=== PATIENT | female | born 1950 | race Caucasian/White ===

== ENCOUNTER → 2018-04-06 08:19 | Outpatient (CLI) | payer MEDICARE, MEDICAID, SELFPAY ==
[2018-04-06 08:42] LABS: Basophils # 0.1 K/mm3 (0-0.2); Basophils % 1.2 % (0.1-2.0); Eosinophils # 0.4 K/mm3 (0.0-0.4); Eosinophils % 7.5 % (0.1-12.0); Hematocrit 46.8 % (37.0-47.0); Hemoglobin 14.3 g/dL (12.2-16.2); Lymphocytes # 0.7 K/mm3 (0.7-4.5); Lymphocytes % 14.9 K/mm3 (10-50); Mean Corpuscular HGB Conc 30.6 g/dL (31.8-35.4); Mean Corpuscular Volume 98.2 fl (81-99); Mean Platelet Volume 7.3 fl (7.4-10.4); Monocytes # 0.5 K/mm3 (0.1-1.0); Monocytes % 9.6 % (1.7-9.3); Neutrophils # 3.3 K/mm3 (1.8-7.8); Neutrophils % 66.8 % (37.0-80.0); Platelet Count 292 K/mm3 (142-424); Red Blood Count 4.77 M/mm3 (4.20-5.40); Red Cell Distribution Width 12.5 % (11.5-17.5)
[2018-04-06 10:21] LABS: Alanine Aminotransferase 22 U/L (12-78); Albumin Level 3.6 gm/dL (3.4-5.0); Albumin/Globulin Ratio 1.2 (1.1-1.8); Alkaline Phosphatase 77 U/L (46-116); Anion Gap 7.1 mEq/L (5-15); Aspartate Amino Transferase 16 U/L (15-37); Bilirubin,Total 0.6 mg/dL (0.2-1.0); Blood Urea Nitrogen 14 mg/dL (7-18); Calcium 8.8 mg/dL (8.5-10.1); Carbon Dioxide 31 mmol/L (21.0-32.0); Chloride 109 mmol/L (98-107); Chol/HDL Ratio 2.3 (1-3.5); Cholesterol 153 mg/dL (140-200); Creatinine,Serum 0.44 mg/dL (0.55-1.02); Estimated Glomerular Filt Rate 142 ml/min (>60); GFR (African American) 172 ML/MIN (>60); Globulin 3.1 gm/dl (1.3-3.2); Glucose 106 mg/dL (74-106); HDL Cholesterol 67 mg/dL (29-89); LDL Cholesterol 76 mg/dL (0-130); Potassium 4.1 mmoL/L (3.5-5.1); Sodium 143 mmol/L (136-145); Thyroid Stimulating Hormone 0.33 uIU/ml (0.358-3.740); Total Protein,Serum 6.7 gm/dL (6.4-8.2); Triglycerides 51 mg/dL (30-200); VLDL Cholesterol 10 mg/dL (0-40)
== END ==
PROVIDERS: Visit Provider Internal Medicine
DX: I10 Essential (primary) hypertension (principal); E03.9 Hypothyroidism, unspecified; E78.5 Hyperlipidemia, unspecified; M15.0 Primary generalized (osteo)arthritis
CPT/HCPCS: 36415; 80053; 80061; 84443; 85025

== ENCOUNTER → 2019-01-06 11:31 | Outpatient (CLI) | payer MEDICARE, MEDICAID, SELFPAY ==
[2019-01-06 12:51] LABS: Basophils # 0.1 K/mm3 (0-0.2); Basophils % 0.9 % (0.1-2.0); Eosinophils # 0.2 K/mm3 (0.0-0.4); Eosinophils % 4.4 % (0.1-12.0); Hematocrit 43.5 % (37.0-47.0); Lymphocytes # 0.5 K/mm3 (0.7-4.5); Lymphocytes % 9.4 % (10-50); Mean Corpuscular HGB Conc 32.3 g/dL (31.8-35.4); Mean Corpuscular Hemoglobin 31.5 pg (27.0-31.2); Mean Corpuscular Volume 97.7 fl (81-99); Mean Platelet Volume 7.5 fl (7.4-10.4); Monocytes # 0.5 K/mm3 (0.1-1.0); Monocytes % 8.1 % (1.7-9.3); Neutrophils # 4.3 K/mm3 (1.8-7.8); Neutrophils % 77.2 % (37.0-80.0); Platelet Count 287 K/mm3 (142-424); Red Blood Count 4.45 M/mm3 (4.20-5.40); Red Cell Distribution Width 12.8 % (11.5-17.5); White Blood Count 5.6 K/mm3 (4.8-10.8)
[2019-01-06 14:29] LABS: Alanine Aminotransferase 25 U/L (12-78); Albumin Level 3.8 gm/dL (3.4-5.0); Albumin/Globulin Ratio 1.2 (1.1-1.8); Alkaline Phosphatase 85 U/L (46-116); Anion Gap 12.3 mEq/L (5-15); Aspartate Amino Transferase 14 U/L (15-37); Bilirubin,Total 0.4 mg/dL (0.2-1.0); Blood Urea Nitrogen 19 mg/dL (7-18); Calcium 9.1 mg/dL (8.5-10.1); Carbon Dioxide 29 mmol/L (21.0-32.0); Chloride 105 mmol/L (98-107); Chol/HDL Ratio 2.7 (1-3.5); Cholesterol 163 mg/dL (140-200); Creatinine,Serum 0.74 mg/dL (0.55-1.02); Estimated Glomerular Filt Rate 78 ml/min (>60); GFR (African American) 94 ML/MIN (>60); Globulin 3.3 gm/dl (1.3-3.2); Glucose 101 mg/dL (74-106); HDL Cholesterol 60 mg/dL (29-89); LDL Cholesterol 76 mg/dL (0-130); Potassium 4.3 mmoL/L (3.5-5.1); Sodium 142 mmol/L (136-145); Total Protein,Serum 7.1 gm/dL (6.4-8.2); Triglycerides 136 mg/dL (30-200); VLDL Cholesterol 27 mg/dL (0-40)
[2019-01-08 06:56] LABS: Vitamin B12 448 pg/mL (232-1245)
== END ==
PROVIDERS: Visit Provider Internal Medicine
DX: I10 Essential (primary) hypertension (principal); R63.4 Abnormal weight loss; E03.9 Hypothyroidism, unspecified; E78.5 Hyperlipidemia, unspecified
CPT/HCPCS: 36415; 80053; 80061; 82607; 84443; 85025

== ENCOUNTER → 2021-12-12 13:30 | Outpatient (CLI) | payer MEDICARE, MEDICAID, SELFPAY ==
[2021-12-12 15:18] LABS: Basophils # 0.1 K/mm3 (0-0.2); Eosinophils # 0.3 K/mm3 (0.0-0.4); Eosinophils % 5.1 % (0.1-12.0); Hematocrit 44.2 % (37.0-47.0); Hemoglobin 13.7 g/dL (12.2-16.2); Lymphocytes # 0.6 K/mm3 (0.7-4.5); Lymphocytes % 11.6 % (10-50); Mean Corpuscular Hemoglobin 31.4 pg (27.0-31.2); Mean Corpuscular Volume 101.4 fl (81-99); Mean Platelet Volume 9.3 fl (7.4-10.4); Monocytes # 0.4 K/mm3 (0.1-1.0); Monocytes % 7.5 % (1.7-9.3); Neutrophils % 74.8 % (37.0-80.0); Platelet Count 316 K/mm3 (142-424); Red Blood Count 4.36 M/mm3 (4.20-5.40); Red Cell Distribution Width 13.3 % (11.5-17.5); White Blood Count 5.4 K/mm3 (4.8-10.8)
[2021-12-12 16:28] LABS: Chloride 102 mmol/L (98-107)
[2021-12-12 16:29] LABS: Potassium 4.3 mmoL/L (3.5-5.1); Sodium 137 mmol/L (136-145)
[2021-12-12 16:31] LABS: Alanine Aminotransferase 21 U/L (12-78); Alkaline Phosphatase 68 U/L (38-126); Aspartate Amino Transferase 29 U/L (14-36); Bilirubin,Total 0.5 mg/dl (0.2-1.3); Blood Urea Nitrogen 11 mg/dl (7-17); Estimated Glomerular Filt Rate 157 ml/min (>60); GFR (African American) 190 ML/MIN (>60)
[2021-12-12 16:32] LABS: Albumin Level 3.6 g/dl (3.5-5.0); Albumin/Globulin Ratio 1.5 (1.1-1.8); Anion Gap 8.3 mEq/L (5-15); Calcium 8.3 mg/dl (8.4-10.2); Carbon Dioxide 31 mmol/L (22.0-30.0); Globulin 2.4 g/dL (1.3-3.2); Glucose 92 mg/dl (74-100)
[2021-12-12 16:58] LABS: Thyroid Stimulating Hormone 2.71 uIU/mL (0.465-4.68)
[2021-12-12 20:59] LABS: Vitamin B12 501 pg/mL (239-931)
[2021-12-12 21:11] LABS: Folate 6.86 ng/mL
== END ==
PROVIDERS: Visit Provider Internal Medicine
DX: M06.00 Rheumatoid arthritis without rheumatoid factor, unspecified site (principal); E03.9 Hypothyroidism, unspecified; M15.0 Primary generalized (osteo)arthritis; F79 Unspecified intellectual disabilities
CPT/HCPCS: 80053; 82607; 82746; 84443; 85025; 85044

== ENCOUNTER 2022-01-13 14:50 | Emergency (ER) | payer MEDICARE, MEDICAID, SELFPAY ==
[2022-01-13 14:50] VITALS: BP 173/88; PULSE 73; RESP 18; TEMP 36.7; O2SAT 98; BMI 15.9
--- NOTE | 2022-01-13 15:05 | XR_ITS ---
FINAL REPORT CLINICAL HISTORY: smashed fingers, pt unable to remove ring FINDINGS: LEFT HAND 3 views of the left hand were obtained. There is a nondisplaced fracture of the tuft of the distal 4th phalanx. The bones are osteopenic. There are mild degenerative changes.. Visualized joint spaces are normally aligned. Soft tissues are unremarkable. IMPRESSION: Nondisplaced fracture of the distal 4th phalanx. Reviewed, Interpreted and Dictated by Cirilo Bo III, MD Transcribed by Jessica Lubin Authenticated by Cirilo Bo III, MD on 01/13/2022 04:05:[address] [facility]
--- NOTE | 2022-01-13 16:18 | HMH.EDUTC ---
[facility] Disposition Clinical Impression: Finger fracture, left Qualifiers: Encounter type: initial encounter Finger: ring finger Fracture type: closed Phalanx: distal Fracture alignment: nondisplaced Qualified Code(s): S62.665A - Nondisplaced fracture of distal phalanx of left ring finger, initial encounter for closed fracture Disposition: Home, Self-Care Condition on Discharge: Good Instructions: Finger Fracture, DI for Finger Fracture, How To Perform RICE (Rest, Ice, Compress, Elevate) Additional Instructions: *RICE, Rest the extremity, Ice 15-20 minutes 3-4 times daily, Compress- wear the flora wrap as discussed as much as possible to help reduce swelling and pain, Elevate the extremity when at rest *finger splint and uymiko is for support and help control swelling, use it except in the shower. Be sure that is not to tight but not to loose either *Elevate when resting *Ibuprofen every 6-8 hours as needed for pain an inflammation. If need something more can take Tylenol in between doses of Ibuprofen to help Immediately follow up with your family doctor for new or worsening of symptoms, or no noticeable improvement over the next 3-5 days Follow up with family Doctor Return if needed Straight to ER if any life threatening symptoms Referrals: Vishal Valdes [Primary Care Provider] - As needed Time of Disposition: 16:34 Medical Decision Making - David Inquiry Pt receiving controlled substance: No David was queried for this patient: No Vital Signs: 01/13/22 14:50 Temperature 98.1 F Temperature Source Oral Pulse Rate [Left Radial] 73 Respiratory Rate 18 Blood Pressure [Right Arm] 173/88 H Blood Pressure Mean [Right Arm] 116 Blood Pressure Source [Right Arm] Automatic Cuff Blood Pressure Position [Right Arm] Sitting 02 Sat by Pulse Oximetry 98 Oxygen Delivery Method Room Air - Radiology Data #1 Image(s): Hand Image Reviewed: Yes I have reviewed radiologist's interpretation IMPRESSION: Nondisplaced fracture of the distal 4th phalanx. [facility] HPI - General Stated complaint: ao 01/13, left hand pain Time Seen by Provider: 01/13/22 16:18 Mode of Arrival: Ambulatory Source of Information: Patient Limitations: No Limitations Description of Symptoms (Recalled from Triage Doc. by RN): C/O MASHED 2 FINGERS AND LEFT HAND THIS AFTERNOON ON A TRUNK OF CAR HEENT Symptoms (Recalled from RN notes): No Resp Symptoms (Recalled from RN notes): No Skin Symptoms (Recalled from RN notes): No MS Symptoms (Recalled from RN notes): Yes Functional Status (Recalled from RN notes): NA - History of Present Illness Provider Complaint: Guardian said that patient was standing at the back of the car and as he was shutting the trunk she stuck her hand out the the trunk shut on the tip of her middle and ring finger on her left hand State that the tips of her fingers immediatly bruised and was swelling so they brought her in to get it checked - Related Data Allergies Allergy/AdvReac Type Severity Reaction Status Date / Time No Known Allergies Allergy Unverified 09/11/17 15:06 - Worker's Comp Is this a Worker's Comp case?: No [facility] History - Hepatitis A Screen Drug use history?: No High risk sexual behaviors?: No History of sexually transmitted infection?: No Currently employed?: No Childcare worker?: No Do you have indoor plumbing?: Yes Do you have electricity?: Yes Attestation statement:: This patient has been screened for Hepatitis A risk factors. I have reviewed the patient's past medical history: Yes ROS Obtained: Yes All systems reviewed & no additional complaints, Yes Systems reviewed as appropriate & no additional complaints - Constitutional Constitutional: Reports system reviewed and no additional complaints, except as docu - ENT Ears, Nose, Mouth, and Throat: Reports system reviewed and no additional complaints, except as docu - Cardiovascular Cardiovascular: Reports system reviewed and no additional complai
[2022-01-13 16:59] VITALS: BP 173/88; PULSE 73; RESP 18; TEMP 36.7; O2SAT 98
== END 2022-01-13 17:00 | disposition home or self-care (01) ==
PROVIDERS: Emergency Provider Nurse Practitioner; PCP Internal Medicine
DX: S62.665A Nondisplaced fracture of distal phalanx of left ring finger, initial encounter for closed fracture (principal); W23.1XXA Caught, crushed, jammed, or pinched between stationary objects, initial encounter; Y92.89 Other specified places as the place of occurrence of the external cause
CPT/HCPCS: 73130; 99213; G0463

== ENCOUNTER → 2022-04-12 10:54 | Outpatient (CLI) | payer MEDICARE, MEDICAID, SELFPAY ==
--- NOTE | 2022-04-12 | ECG_ITS ---
APPROVED REPORT Exam: Resting ECG HR:77 bpm ECG Measurements Heart Rate 77 AXES DC 197 P 67 QRSd 85 QRS 55 QT 387 T 73 QTc 419 Conclusion SINUS RHYTHM LEFT VENTRICULAR HYPERTROPHY AND ST-T CHANGE [VOLTAGE CRITERIA PLUS ST/T ABNORMALITY] ABNORMAL ECG Electronically signed by : Vishal Valdes MD 04/12/2022 15:15:34
[2022-04-12 12:08] LABS: Chloride 102 mmol/L (98-107); Sodium 135 mmol/L (136-145)
[2022-04-12 12:09] LABS: Basophils % 0.9 % (0.1-2.0); Eosinophils # 0.3 K/mm3 (0.0-0.4); Hematocrit 37.6 % (37.0-47.0); Hemoglobin 12.6 g/dL (12.2-16.2); Lymphocytes # 0.5 K/mm3 (0.7-4.5); Lymphocytes % 10.2 % (10-50); Mean Corpuscular HGB Conc 33.4 g/dL (31.8-35.4); Mean Corpuscular Hemoglobin 32.5 pg (27.0-31.2); Mean Corpuscular Volume 97.1 fl (81-99); Mean Platelet Volume 7.6 fl (7.4-10.4); Monocytes # 0.4 K/mm3 (0.1-1.0); Neutrophils # 3.9 K/mm3 (1.8-7.8); Neutrophils % 76.9 % (37.0-80.0); Platelet Count 280 K/mm3 (142-424); Potassium 3.8 mmoL/L (3.5-5.1); Red Blood Count 3.87 M/mm3 (4.20-5.40); Red Cell Distribution Width 13.1 % (11.5-17.5)
[2022-04-12 12:11] LABS: Alanine Aminotransferase 29 U/L (12-78); Albumin Level 3.5 g/dl (3.5-5.0); Albumin/Globulin Ratio 1.3 (1.1-1.8); Alkaline Phosphatase 71 U/L (38-126); Anion Gap 7.8 mEq/L (5-15); Aspartate Amino Transferase 32 U/L (14-36); Bilirubin,Total 0.5 mg/dl (0.2-1.3); Blood Urea Nitrogen 14 mg/dl (7-17); Calcium 8.9 mg/dl (8.4-10.2); Carbon Dioxide 29 mmol/L (22.0-30.0); Estimated Glomerular Filt Rate 157 ml/min (>60); GFR (African American) 190 ML/MIN (>60); Globulin 2.6 g/dL (1.3-3.2); Glucose 225 mg/dl (74-100); Total Protein,Serum 6.1 g/dl (6.3-8.2)
[2022-04-12 12:12] LABS: Magnesium 1.7 mg/dl (1.6-2.3)
[2022-04-12 12:41] LABS: Thyroid Stimulating Hormone 0.15 uIU/mL (0.465-4.68)
[2022-04-12 12:49] LABS: Erythrocyte Sedimentation Rate 7 mm/hr (0-30)
[2022-04-12 14:06] LABS: Vitamin B12 531 pg/mL (239-931)
[2022-04-12 18:57] LABS: Hemoglobin A1C 6.1 % (4.0-6.0)
[2022-04-14 08:15] LABS: Triiodothyronine (T3) Total 98 ng/dL (71-180)
== END ==
PROVIDERS: PCP Internal Medicine; Visit Provider Internal Medicine
DX: E03.9 Hypothyroidism, unspecified (principal); R73.9 Hyperglycemia, unspecified; I10 Essential (primary) hypertension; I49.9 Cardiac arrhythmia, unspecified; R63.4 Abnormal weight loss; F79 Unspecified intellectual disabilities
CPT/HCPCS: 80053; 82607; 83036; 83735; 84443; 84480; 85025; 85651; 93005

== ENCOUNTER → 2022-08-14 13:14 | Outpatient (CLI) | payer MEDICARE, MEDICAID, SELFPAY ==
[2022-08-14 14:35] LABS: Anion Gap 14.4 mEq/L (5-15); Blood Urea Nitrogen 15 mg/dl (7-17); Calcium 9.3 mg/dl (8.4-10.2); Carbon Dioxide 32 mmol/L (22.0-30.0); Chloride 96 mmol/L (98-107); Estimated Glomerular Filt Rate 121 ml/min (>60); GFR (African American) 147 ML/MIN (>60); Glucose 127 mg/dl (74-100); Sodium 138 mmol/L (136-145)
[2022-08-14 14:53] LABS: Potassium 4.4 mmoL/L (3.5-5.1)
== END ==
PROVIDERS: PCP Internal Medicine; Visit Provider Internal Medicine
DX: E03.9 Hypothyroidism, unspecified (principal)
CPT/HCPCS: 80048; 84443

== ENCOUNTER 2022-09-05 14:50 | Emergency (ER) | payer MEDICARE, MEDICAID, SELFPAY ==
[2022-09-05 15:10] VITALS: BP 147/69; PULSE 78; RESP 16; TEMP 36.7; O2SAT 97; BMI 13.4
--- NOTE | 2022-09-05 15:20 | PC.NURSE ---
Pt laceration cleaned with saline and sterile 4x4s gauze dressing taped over top of laceration. pt tolerated cleaning well.
--- NOTE | 2022-09-05 15:44 | PC.NURSE ---
pt waiting in triage room on bed availability in ER.
--- NOTE | 2022-09-05 16:54 | PC.NURSE ---
pt POA states he is going to take pt home r/t length of wait, states he is not well himself and can not sit for long periods of time. States he will bandage wound at home as needed. Apologized to him about length of wait time, pt verbalized understanding about no beds available in ER at this time. Explained to POA to bring pt back at any time should he feel pt needs or wants to have pt seen. pt lwbs at this time with her POA notified ER
[2022-09-05 17:00] VITALS: BP 147/69; PULSE 78; RESP 18; TEMP 36.7; O2SAT 97
== END 2022-09-05 17:00 | disposition left against medical advice (07) ==
PROVIDERS: Emergency Provider Emergency Medicine; PCP Internal Medicine
DX: Z53.21 Procedure and treatment not carried out due to patient leaving prior to being seen by health care provider (principal)

== ENCOUNTER → 2022-11-03 12:14 | Outpatient (CLI) | payer MEDICARE, MEDICAID, SELFPAY ==
[2022-11-03 12:31] LABS: Basophils # 0.1 K/mm3 (0-0.2); Eosinophils # 0.2 K/mm3 (0.0-0.4); Eosinophils % 3.5 % (0.1-12.0); Hematocrit 42.3 % (37.0-47.0); Hemoglobin 13.5 g/dL (12.2-16.2); Lymphocytes # 0.5 K/mm3 (0.7-4.5); Mean Corpuscular Volume 96.8 fl (81-99); Mean Platelet Volume 9.6 fl (7.4-10.4); Monocytes # 0.4 K/mm3 (0.1-1.0); Monocytes % 6.3 % (1.7-9.3); Neutrophils # 5.2 K/mm3 (1.8-7.8); Neutrophils % 82.1 % (37.0-80.0); Platelet Count 376 K/mm3 (142-424); Red Blood Count 4.37 M/mm3 (4.20-5.40); Red Cell Distribution Width 13.1 % (11.5-17.5); White Blood Count 6.3 K/mm3 (4.8-10.8)
[2022-11-03 13:35] LABS: Alanine Aminotransferase 15 U/L (12-78); Albumin Level 3.8 g/dl (3.5-5.0); Albumin/Globulin Ratio 1.3 (1.1-1.8); Alkaline Phosphatase 80 U/L (38-126); Aspartate Amino Transferase 24 U/L (14-36); Bilirubin,Total 0.3 mg/dl (0.2-1.3); Blood Urea Nitrogen 16 mg/dl (7-17); Calcium 8.7 mg/dl (8.4-10.2); Carbon Dioxide 32 mmol/L (22.0-30.0); Chloride 105 mmol/L (98-107); Estimated Glomerular Filt Rate 98 ml/min (>60); GFR (African American) 119 ML/MIN (>60); Globulin 2.9 g/dL (1.3-3.2); Glucose 121 mg/dl (74-100); Sodium 141 mmol/L (136-145); Total Protein,Serum 6.7 g/dl (6.3-8.2)
[2022-11-03 14:05] LABS: Thyroid Stimulating Hormone 3.69 uIU/mL (0.465-4.68)
== END ==
PROVIDERS: PCP Internal Medicine; Visit Provider Internal Medicine
DX: I10 Essential (primary) hypertension (principal); E03.9 Hypothyroidism, unspecified; R63.4 Abnormal weight loss; D64.9 Anemia, unspecified; J45.901 Unspecified asthma with (acute) exacerbation; M15.0 Primary generalized (osteo)arthritis
CPT/HCPCS: 80053; 84443; 85025

== ENCOUNTER 2022-11-23 10:52 | Emergency (ER) | payer MEDICARE, MEDICAID, SELFPAY ==
--- NOTE | 2022-11-23 11:03 | XR_ITS ---
FINAL REPORT CLINICAL HISTORY: fall FINDINGS: Pelvis A single view was obtained. There is no acute fracture or dislocation. There is degenerative disease. No soft tissue abnormality is identified. IMPRESSION: Degenerative disease. If clinical concern persists, CT is recommended. Reviewed, Interpreted and Dictated by Nevaeh Patricia MD Transcribed by Ila Colin Authenticated and . [facility]
--- NOTE | 2022-11-23 11:03 | CT_ITS ---
FINAL REPORT TECHNIQUE: Thin section axial images were obtained from skull base to vertex without contrast. Coronal reconstruction images were obtained from the axial data. Exam was performed using dose reduction technique. CLINICAL HISTORY: trauma FINDINGS: There is age-appropriate atrophy. There is no mass effect or midline shift. There is no intracranial hemorrhage. There is no hydrocephalus. Periventricular low density is likely related to changes of chronic small vessel ischemia. The basilar cisterns are preserved. The posterior fossa is without acute abnormality. There is partial opacification of the right maxillary sinus. The soft tissues are otherwise without acute abnormality. No acute osseous abnormality is identified. IMPRESSION: Atrophy and chronic small vessel ischemic change. Right maxillary sinusitis. Reviewed, Interpreted and Dictated by Nevaeh Patricia MD Transcribed by Ila Colin Authenticated and [facility]
[2022-11-23 11:04] VITALS: BP 124/101; PULSE 109; RESP 16; TEMP 36.4; O2SAT 97; BMI 14.1
--- NOTE | 2022-11-23 11:04 | HMH.EDGENADL ---
Discharge Plan Disposition Patient Disposition: Home, Self-Care Condition: Good Prescriptions Prescriptions: New cephalexin 500 mg capsule 500 mg PO BID 10 Days Qty: 20 0RF Referrals Follow up/Referrals: Vishal Valdes MD [Primary Care Provider] - See instructions Activity Restrictions/Add. Instructions Additional Instructions/Restrictions: You have been evaluated for head injury after a fall. CT scan today shows no skull fracture or bleed. You have been diagnosed with a concussion, closed head injury. Your urine today shows signs of infection. It is important that you take antibiotics twice daily as prescribed. Follow-up with your primary care doctor. Return to the emergency department at once for any new or worsening symptoms Clinical Impressions Clinical Impression: Closed head injury, Cystitis Instructions Patient Instructions: DI for Acute Cystitis, DI for Concussion Discharge ED Provider: Roxann Meyers Adult HPI General Chief complaint: Fall Stated complaint: Fall@home 11/20 Loss of appetite RT foot pain/weak Time Seen by Provider: 11/23/22 10:59 Mode of Arrival: Ambulatory Source of Information: Relative Limitations: No Limitations History of Present Illness HPI narrative: 72-year-old female presenting to the emergency department with head injury, fall. Fall happened on Sunday, 5 days ago. It was heard by her brother in law, her caregiver. Since then she has been somewhat more tired than normal. She usually plays with toys and watches TV during the day. She seems to be sleeping more often. Eating very little. She is very thin at baseline. Nonverbal. Developmental delay. Brother has not noticed fevers, vomiting. No other apparent injuries in the fall. She is able to stand and walk with assistance. Usually does not use a wheelchair, walker, other assistive device. Related Data Previous Rx's Medication Instructions Recorded cephalexin 500 mg capsule 500 mg PO BID 10 days #20 caps 11/23/22 Allergies Allergy/AdvReac Type Severity Reaction Status Date / Time No Known Allergies Allergy Unverified 09/11/17 15:06 [facility] Disclaimer: The information contained in this section may have been updated after the patient was seen, as this information can be updated by other users. Social History Smoking Status: Never smoker alcohol intake: never current occupational status: disabled Travel in the last 8 weeks: None ROS Obtained: Yes All systems reviewed & no additional complaints except as documented Constitutional Constitutional: Reports anorexia, Reports daytime sleepiness, Denies fever(s) and Denies headache(s) Eyes Eyes: Denies irritation ENT Ears, Nose, Mouth, and Throat: Reports disequilibrium and Denies headache(s) Cardiovascular Cardiovascular: Denies leg edema Respiratory Respiratory: Denies cough and Denies wheezing Gastrointestinal Gastrointestingal: Denies diarrhea or vomiting Musculoskeletal Musculoskeletal: Denies limited range of motion Neurologic Neurologic: Reports disequilibrium and Denies headache(s) Allergic/Immunologic Allergic/Immunologic: Denies wheezing Physical Exam General General appearance: alert and in no apparent distress Head Head exam: atraumatic and normocephalic Eye Eye exam: Present normal appearance; Absent scleral icterus or conjunctival redness ENT ENT exam: Present normal exam, mucous membranes moist and other (Poor dentition.) Neck Neck exam: Present normal inspection and other (No palpable step-off or deformity.); Absent tenderness Respiratory Respiratory exam: Present normal lung sounds bilaterally; Absent respiratory distress or wheezes Cardiovascular Cardiovascular exam: Present regular rate and normal rhythm Abdominal Exam Abdominal exam: Present soft; Absent distention or tenderness Extremities Exam Extremities exam: Present normal inspection and other (No apparent tenderness palpation on hip flexion, knee fle
--- NOTE | 2022-11-23 11:29 | PC.NURSE ---
From imaging. Labs collected.
[2022-11-23 11:30] VITALS: BP 119/87; PULSE 105; O2SAT 95
[2022-11-23 11:48] LABS: Basophils # 0.1 K/mm3 (0-0.2); Basophils % 0.3 % (0.1-2.0); Eosinophils # 0.2 K/mm3 (0.0-0.4); Eosinophils % 1.3 % (0.1-12.0); Hematocrit 40.1 % (37.0-47.0); Hemoglobin 12.9 g/dL (12.2-16.2); Lymphocytes # 0.3 K/mm3 (0.7-4.5); Mean Corpuscular HGB Conc 32.2 g/dL (31.8-35.4); Mean Corpuscular Hemoglobin 31.1 pg (27.0-31.2); Mean Corpuscular Volume 96.7 fl (81-99); Mean Platelet Volume 8.3 fl (7.4-10.4); Monocytes # 0.8 K/mm3 (0.1-1.0); Monocytes % 4.9 % (1.7-9.3); Neutrophils # 14.7 K/mm3 (1.8-7.8); Neutrophils % 91.4 % (37.0-80.0); Platelet Count 301 K/mm3 (142-424); Red Blood Count 4.14 M/mm3 (4.20-5.40); Red Cell Distribution Width 13.6 % (11.5-17.5); White Blood Count 16.1 K/mm3 (4.8-10.8)
--- NOTE | 2022-11-23 11:52 | PC.NURSE ---
I&O cath completed for UA.
[2022-11-23 11:54] LABS: Chloride 103 mmol/L (98-107); Potassium 3.8 mmoL/L (3.5-5.1); Sodium 137 mmol/L (136-145)
[2022-11-23 11:57] LABS: Microscopic, Urine URINE MICROSCOPIC (MICROSCOPIC)
[2022-11-23 11:57] LABS: Alanine Aminotransferase 23 U/L (12-78); Albumin Level 3.7 g/dl (3.5-5.0); Albumin/Globulin Ratio 1.3 (1.1-1.8); Alkaline Phosphatase 78 U/L (38-126); Anion Gap 10.8 mEq/L (5-15); Aspartate Amino Transferase 27 U/L (14-36); Bilirubin,Total 0.6 mg/dl (0.2-1.3); Blood Urea Nitrogen 21 mg/dl (7-17); Carbon Dioxide 27 mmol/L (22.0-30.0); Creatinine Clearance Estimated 29 mL/min (50-200); Estimated Glomerular Filt Rate 121 ml/min (>60); GFR (African American) 146 ML/MIN (>60); Globulin 2.9 g/dL (1.3-3.2); Total Protein,Serum 6.6 g/dl (6.3-8.2)
[2022-11-23 11:58] LABS: Calcium 8.6 mg/dl (8.4-10.2); Glucose 223 mg/dl (74-100)
[2022-11-23 12:02] LABS: Appearance,Urine CLEAR (Clear); Bilirubin,Urine Negative (Negative); Blood, Urine TRACE-I (Negative); Color,Urine YELLOW (Yellow); Glucose,Urine (UA) 1+ (Negative); Ketones,Urine TRACE (Negative); Leukocyte Esterase,Urine Negative (Negative); Nitrate,Urine POSITIVE (Negative); Protein,Urine TRACE (Negative); Specific Gravity, Urine 1.025 (1.005-1.030); Urobilinogen,Urine 0.2 EU/dl (0.2)
[2022-11-23 12:16] LABS: MANUAL DIFFERENTIAL MANUAL DIFFERENTIAL (MANUAL DIFF)
[2022-11-23 12:24] VITALS: BP 133/69; PULSE 66; RESP 19; TEMP 36.8; O2SAT 97
--- NOTE | 2022-11-23 12:30 | PC.NURSE ---
Oral fluids provided.
[2022-11-23 12:31] LABS: Bacteria,Urine 2+ /lpf; Squamous Epithelial Cell,Urine Occasional #/hpf (0-5)
[2022-11-23 12:35] LABS: Eosinophils % 1 % (0-3); Lymphocytes % 5 % (10-50); Monocytes % 6 % (2-9); Neutrophils % 88 % (42-76); Platelet Estimate Normal; RBC Morphology Normal; Total Cells Counted 100
== END 2022-11-23 12:51 | disposition home or self-care (01) ==
PROVIDERS: Emergency Provider Emergency Medicine; PCP Internal Medicine
DX: S09.8XXA Other specified injuries of head, initial encounter (principal); N30.00 Acute cystitis without hematuria; R53.1 Weakness; W19.XXXA Unspecified fall, initial encounter
CPT/HCPCS: 70450; 72170; 80053; 81001; 85007; 85025; 87086; 87088; 87186; 99284; 99285

== ENCOUNTER 2023-11-01 08:11 | Day surgery (SDC) | payer MEDICARE, MEDICAID, SELFPAY ==
[2023-11-01] VITALS (9 sets, daily range): BP systolic 125–151; BP diastolic 69–93; PULSE 79–101; RESP 12–21; TEMP 36.3–36.6; O2SAT 93–95; BMI 15.9
[2023-11-01] MEDS: LIDOCAINE 1% W/EPI 1:100,000 20ML VIAL 20 ML (10:55)
--- NOTE | 2023-11-01 11:14 | P.PNANES_ITS ---
[facility] Disclaimer: The information contained in this section may have been updated after the patient was seen, as this information can be updated by other users. Medical History History of failure to thrive syndrome History of hyperlipidemia History of hypertension History of hypothyroidism History of rheumatoid arthritis History of seizures Mental disability No significant past medical history Surgical History (Updated 11/01/23 @ 08:49 by Linda Queen RN) No significant past surgical history Family History Other No significant family history Social History Smoking Status: Never smoker alcohol intake: never substance use type: denies use current occupational status: disabled Travel in the last 8 weeks: None [facility] Anesthesia Checklist Patient Identification Patient Identification: Family Structural Data Admitted From: [place] Planned Operative Procedure/s: full mouth extraction Consent for Planned Operative Procedure(s) Verified: Yes Additional verifications Anesthesia Reactions: No Hx Blood Transfusions: No Airway Assessment Mallampati Score:: Class II C-Spine Mobility Assessed: Yes TMJ Mobility Assessed: Yes Dentition: Poor Dentition Neurological Assessment Level of Consciousness: Awake, Alert, Inappropriate and Restless Anesthesia Plan Anesthesia Risk discussed: Yes Anesthesia Plan: Verified ASA Class: III Anesthesia Type: General
--- NOTE | 2023-11-01 11:41 | P.PNANES_ITS ---
[facility] Anesthesia Record Part I Anesthesia Record I Intake, IV Amount: 1,200 Hydration: Adequate Estimated blood loss (mL): 10 Urine output (mL): 0 Blood Pressure: 144/87 SaO2: 95 Pulse Rate: 92 Airway Patency: Patent Respiratory Rate: 12 Temperature: 98 F Patient is:: Awake and Stable Stable to PACU at:: 11:40
[2023-11-01] MEDS: MEPERIDINE 25MG/ML 1ML SYRINGE 25 MG IV (12:12)
--- NOTE | 2023-11-01 17:21 | P.PCN_ITS ---
Operative Note Date of procedure: 11/01/23 Date of : 1950 Pre-op Diagnosis:: non restorable teeth Post-op diagnosis:: other Procedure performed:: The 72, F patient was transported to the [facility] OR pre operative holding room by [facility]. In the holding room, an IV was started. The patient was then transported to the operating room where [place] was nasotracheal intubated. Anesthesia was induced and maintained. The patient was draped in the usual manner. 18 intraoral x-rays were taken. The throat was suctioned free of debris. One single moist throat pack was placed in the posterior oral pharynx. A complete intra-oral exam and review of the complete set of x-rays was completed. The patient was found to have non restorable decay on all remaining teeth. 14 teeth were extracted. Simple extractions were performed on teeth #7, 8, 9, 10. Surgical extractions were performed on teeth #5, 6, 11, 13, 15, 20, 21, 22, 28, 29. Alveleoplasty in conjustion with extractions was performed on all 4 quadrants, LL, LR, UL, and UR. Hemostasis was achieved with direct pressure using gauze. The patient was given 4 capules, 144mg of Octacaine with Epinephrine 1:100,000 which was 0.3mg for postoperative pain control. Estimated blood loss was 10cc. The patient tolerated all surgical procedures well and there were no surgical complications. The throat was irrigated and suctioned free of debris. The throat pack was removed. The patient was extubated without complications and taken to the postoperative anesthetic recovery room in satisfactory condition. Surgeon:: Astrid Mckenzie DMD Rail Doweling Machine Operator(s):: Tracey Miller BEVERAGE INSPECTION MACHINE TENDER:: Jairo Poon Anesthesia: GETA Estimated blood loss (mL): 10 Operative note:: Same as procedure performed Disposition: PACU Specimens:: 14 teeth were disposed of. Complications:: None
--- NOTE | 2023-11-05 14:00 | EXP.ANES.II ---
[facility] Anesthesia Record Part II Anesthesia Record Part II Discharge Time: 12:10 Destination: Surgical Day Care (OP Surgery) PACU nurse assessment reviewed?: Yes Patient Condition:: Good Anesthesia Complications:: None Swallowing reflex intact?: Yes Airway Patency: Patent Cyanosis?: No Blood Pressure: 146/80 SaO2: 94 Respiratory Rate: 18 Pulse Rate: 101 Temperature: 97.4 F Mental Status: Alert & Oriented Pain level:: 0 Nausea and/or vomitting:: None Intake, IV Amount: 0 Hydration: Adequate
[2023-11-05 14:01] VITALS: BP 146/80; PULSE 101; RESP 18; TEMP 36.3; O2SAT 94
== END 2023-11-01 12:50 | disposition home or self-care (01) ==
PROVIDERS: PCP Internal Medicine Adolescent Medicine; Visit Provider Dentist General Practice
PROC: (CPT 41899; principal; 2023-11-01 09:45)
DX: K02.9 Dental caries, unspecified (principal)
CPT/HCPCS: 41899

== ENCOUNTER 2024-03-05 11:18 | Emergency (ER) | payer MEDICARE, MEDICAID, SELFPAY ==
[2024-03-05] VITALS (7 sets, daily range): BP systolic 119–161; BP diastolic 75–88; PULSE 63–71; RESP 11–16; TEMP 36.6; O2SAT 93–98; BMI 14.5
--- NOTE | 2024-03-05 12:03 | CT_ITS ---
FINAL REPORT CLINICAL HISTORY: fall from NH, non verbal COMPARISON: None FINDINGS: Axial CT images of the cervical spine were obtained without contrast. Sagittal and coronal reformatted images were also obtained. This study was performed with techniques to keep radiation doses as low as reasonably achievable (ALARA). Individualized dose reduction techniques using automated exposure control or adjustment of mA and/or kV according to the patient''s size were employed. There is motion on many sequences which limits overall image quality. There is no evidence of fracture or dislocation. The bony alignment is normal. Mild degenerative changes present. There is no evidence of canal stenosis. No paraspinous soft tissue abnormality is seen. Limited images of the upper thorax are unremarkable. IMPRESSION: No definite fracture or acute bony abnormality identified, although imaging is severely limited by motion. Reviewed, Interpreted and Dictated by Cirilo Bo III, MD Transcribed by Dayanna Licona Authenticated and [facility]
--- NOTE | 2024-03-05 12:03 | CT_ITS ---
FINAL REPORT CLINICAL HISTORY: fall from NH, non verbal COMPARISON: 11/23/2022 FINDINGS: Axial images of the head were obtained without contrast. Coronal and sagittal reformatted images were also obtained. This study was performed with techniques to keep radiation doses as low as reasonably achievable (ALARA). Individualized dose reduction techniques using automated exposure control or adjustment of mA and/or kV according to the patient's size were employed. There is severe generalized atrophy. There is motion on many sequences with patient movement, which severely degrades overall image quality. Periventricular low-attenuation areas are seen consistent with severe chronic ischemic changes. There is no evidence of intracranial hemorrhage or mass. No definite hemorrhage or acute intracranial abnormality visualized. There is no evidence of shift of the midline structures. No skull abnormality is seen on the bone window images. There is mild mucosal thickening noted in the paranasal sinuses. IMPRESSION: Atrophy and severe periventricular chronic ischemic changes. No definite acute intracranial abnormality identified, although there is motion on many sequences which markedly limits overall image quality. Reviewed, Interpreted and Dictated by Cirilo Bo III, MD Transcribed by Dayanna Licona Authenticated and . [facility]
--- NOTE | 2024-03-05 12:03 | XR_ITS ---
FINAL REPORT CLINICAL HISTORY: fall from NH, non verbal COMPARISON: 11/23/2022 FINDINGS: SINGLE VIEW PELVIS: A single view of the pelvis was obtained. Mild degenerative changes are present. There is a left femoral neck fracture, which appears subacute or chronic with nonunion. This was likely present on the prior exam of 11/23/2022. Visualized joint spaces are normally aligned. A large amount of retained stool is present in the colon. IMPRESSION: 8 left femoral neck fracture, which appears subacute or chronic with nonunion, is present. This was likely present on the prior exam of January 23, 2023. Large amount of retained stool present in the colon. Reviewed, Interpreted and Dictated by Cirilo Bo III, MD Transcribed by Dayanna Licona Authenticated and [facility]
--- NOTE | 2024-03-05 12:03 | XR_ITS ---
FINAL REPORT CLINICAL HISTORY: fall from [place], non verbal COMPARISON: None FINDINGS: A single portable view of the chest was obtained. The films are rotated to the left. The heart size and pulmonary vascularity are within normal limits. The mediastinum is within normal limits. Left base opacities are present, atelectasis versus pneumonia. The bony thorax is intact. IMPRESSION: Left base opacities are present, atelectasis versus pneumonia. Reviewed, Interpreted and Dictated by Cirilo Bo III, MD Transcribed by Dayanna Licona Authenticated and [facility]
--- NOTE | 2024-03-05 12:06 | ED_ITS ---
Discharge Plan Disposition Patient Disposition: Home, Self-Care Prescriptions Prescriptions: No Action fexofenadine [Tracey] 180 mg Tablet 180 mg PO DAILY acetaminophen 500 mg Tablet 500 mg PO TID famotidine [Pepcid] 20 mg Tablet 20 mg PO DAILY lorazepam [Ativan] 0.5 mg Tablet 0.5 mg PO HS levothyroxine 125 mcg Tablet 125 mcg PO DAILY mirtazapine 15 mg Tablet 15 mg PO HS metoprolol tartrate 25 mg Tablet 12.5 mg PO BID Referrals Follow up/Referrals: Provider,Referral, MD [Primary Care Provider] - See instructions Activity Restrictions/Add. Instructions Additional Instructions/Restrictions: Patient has evidence of a subacute or chronic left femoral neck fracture. I reviewed the case with our orthopedic surgeon Dr. Garcia she did have evidence of a fracture in November of last year and given the fact that this is an old fracture and that she is bedbound and able to range her hip without any significant pain this is a nonoperative injury. You may follow-up with him in an outpatient setting if you would like. Otherwise no other injuries found from a radiographic standpoint. Clinical Impressions Clinical Impression: Fall, Nonverbal, Encounter for medical screening examination, Femoral neck fracture Discharge ED Provider: Cade Meade General Adult HPI General Chief complaint: Fall Stated complaint: Fall Time Seen by Provider: 03/05/24 11:58 Mode of Arrival: EMS Source of Information: EMS Limitations: Language Barrier Description of Symptoms (Recalled from ER Triage Doc. by RN): pt to ed as a result of a fall. pt is non-verbal. ems reports [facility] home staff found her on the floor by her bed. brusing noted to the left forehead. History of Present Illness HPI narrative: Patient is a 73-year-old female who is nonverbal at a custodial who was found on the floor next to her bed. Unsure as to whether or not she had any injuries patient is not able to provide any further history there is also no history from EMS or from the custodial of any definitive injury. Related Data Home Medications Medication Instructions Recorded Confirmed acetaminophen 500 mg tablet 500 mg PO TID 10/30/23 11/01/23 famotidine 20 mg tablet (Pepcid) 20 mg PO DAILY 10/30/23 11/01/23 fexofenadine 180 mg tablet 180 mg PO DAILY 10/30/23 11/01/23 levothyroxine 125 mcg tablet 125 mcg PO DAILY 10/30/23 11/01/23 lorazepam 0.5 mg tablet (Ativan) 0.5 mg PO HS 10/30/23 11/01/23 metoprolol tartrate 25 mg tablet 12.5 mg PO BID 10/30/23 11/01/23 mirtazapine 15 mg tablet 15 mg PO HS 10/30/23 11/01/23 Allergies Allergy/AdvReac Type Severity Reaction Status Date / Time No Known Allergies Allergy Verified 11/01/23 08:49 [facility] Disclaimer: The information contained in this section may have been updated after the patient was seen, as this information can be updated by other users. Medical History (Updated 03/05/24 @ 13:00 by Cade Meade MD) No significant past medical history History of failure to thrive syndrome History of hyperlipidemia History of rheumatoid arthritis History of hypothyroidism History of hypertension Mental disability History of seizures Surgical History (Updated 11/01/23 @ 08:49 by Linda Queen RN) No significant past surgical history Family History Other No significant family history Social History (Updated 11/01/23 @ 11:15 by Jairo Pono CRNA) Smoking Status: Unknown if ever smoked alcohol intake: never substance use type: denies use current occupational status: disabled Travel in the last 8 weeks: None ROS Obtained: Yes All systems reviewed & no additional complaints except as documented Physical Exam General General appearance: alert and in no apparent distress Neck Neck exam: Absent tenderness Respiratory Respiratory exam: Present normal lung sounds bilaterally; Absent respiratory distress Cardiovascular Cardiovascular exam: Present regular rate and normal rhythm Abdominal Exam Abdominal exam: Present soft; Absent distention Extremities Exam Extremities exam: Present other (Extremities are contracted but no evidence of any obvious tenderness with any palpation of the long bones or soft tissue abnormalities) Neurological Exam Neurological exam: Present alert and oriented X3 Medical Decision Making David Inquiry Pt receiving controlled substance: No Vital Signs: 03/05/24 11:30 03/05/24 11:51 03/05/24 12:00 Temperature 97.9 F Temperature Source Oral Pulse Rate 70 69 Pulse Rate [Left Radial] 71 Respiratory Rate 14 Blood Pressure 144/88 H 132/86 Blood Pressure [Right Arm] 145/83 H Blood Pressure Mean 115 101 Blood Pressure Mean [Right Arm] 103 02 Sat by Pulse Oximetry 98 97 96 Oxygen Delivery Method Room Air Orders (Tests/Meds): ORDERS Category Date Time Status CT cervical spine wo con Stat Cat Scan 03/05/24 12:[address] head/brain wo con Stat Cat Scan 03/05/24 12:03 Taken XR chest portable Stat Exams 03/05/24 12:03 Taken XR pelvis 1-2V Stat Exams 03/05/24 12:03 Taken Medical Decision Narrative: 73-year-old nonverbal contracted patient sent after being found next to her bed at the custodial presumptively she rolled out of bed. No obvious evidence of injury from external standpoint we will get a CT scan of her head cervical spine and a plain film of her chest and pelvis. No other focal traumatic imaging or testing is warranted. Reassessment CT scan of the head and cervical spine performed to person in terpreted shows no acute fractures dislocations or intracranial hemorrhage. Chest x-ray performed to person interpreted shows no acute pathology. Pelvis x- ray performed on first interpreted which shows a chronic and sclerotic left subacute femoral neck fracture. I reviewed the case with Dr. Garcia her orthopedic surgeon and we looked at her old x-rays from which did in fact show a fracture at that time. This is an old subacute fracture. She is nonweightbearing we are able to range her hip without any significant pain therefore this is nonoperative. She was discharged back to the custodial they may follow-up with Dr. Garcia if they have any outpatient questions. Critical Care Critical Care Time Critical Care Time: No
--- NOTE | 2024-03-05 14:15 | PC.NURSE ---
Rounded on pt. pt felt cold to touch I covered pt back with blankets and repositioned on bed in a more comfortable positioned.
== END 2024-03-05 15:02 | disposition home or self-care (01) ==
PROVIDERS: Emergency Provider Student in an Organized Health Care Education/Training Program; PCP Internal Medicine
DX: S72.002A Fracture of unspecified part of neck of left femur, initial encounter for closed fracture (principal); R47.89 Other speech disturbances; W06.XXXA Fall from bed, initial encounter
CPT/HCPCS: 70450; 71045; 72125; 72170; 99285

== ENCOUNTER 2024-06-03 17:58 | Outpatient (CLI) | payer MEDICARE, MEDICAID, SELFPAY ==
[2024-06-03 18:49] LABS: Microscopic, Urine URINE MICROSCOPIC (MICROSCOPIC)
[2024-06-03 19:41] LABS: Appearance,Urine SL CLOUDY (Clear); Bilirubin,Urine Negative (Negative); Blood, Urine Negative (Negative); Color,Urine YELLOW (Yellow); Glucose,Urine (UA) 1+ (Negative); Ketones,Urine Negative (Negative); Leukocyte Esterase,Urine 1+ (Negative); Nitrate,Urine Negative (Negative); Protein,Urine Negative (Negative); Specific Gravity, Urine >= 1.030 (1.005-1.030); Urobilinogen,Urine 0.2 EU/dl (0.2)
[2024-06-03 20:01] LABS: Bacteria,Urine Trace /lpf
== END 2024-06-03 23:59 | disposition home or self-care (01) ==
LOC: LAB.DROPOF 18:01
PROVIDERS: PCP Internal Medicine Adolescent Medicine; Visit Provider Internal Medicine Adolescent Medicine
DX: R82.998 Other abnormal findings in urine (principal); R41.81 Age-related cognitive decline
CPT/HCPCS: 81001; 87086; 87088; 87186